=== PATIENT | male | born 1980 | race Caucasian/White ===

== ENCOUNTER 2022-03-07 08:23 | Emergency (ER) | payer OTHER, BC ==
[~2022-03-07] VITALS: Ht 185 cm; Wt 178.0 kg
[2022-03-07] MEDS ORDERED: HYDROcodone/APAP 7.5 MG/325 MG (LORTAB, LORCET PLUS) TABLET PO ONE (09:00)
--- NOTE | 2022-03-07 09:06 | ED Lower Extremity ---
General Chief Complaint: Lower Extremity Stated Complaint: L FOOT PAIN / INJ Nursing Triage Note: PT AMB TO FT1 PT STATES RAN OVER L FOOT W SCISSOR LIFT THIS AM AT WORK IN [place], TRYING TO WORK THIS AM AND NOT ABLE TO WORK Source: patient Exam Limitations: no limitations History of Present Illness Date Seen by Provider: March 07, 2022 Time Seen by Provider: 08:57 Initial Comments Patient is a 41-year-old male who presents to the emergency room with a chief complaint of crush injury to the left foot at about midnight last night. Patient was working on a scissor lift about midnight and the scissor low drove over his left foot. Patient had immediate pain with swelling. He was able to bear weight on his heel. He drove down here from [place] this morning for another job starting shortly here in [place]. He has not taken anything for the pain. He did eat breakfast between 7 and 8 AM this morning. Has had previous injury to this foot. States that his toes are numb. Significant pain to all of his toes except for the fifth toe. Very swollen and ecchymotic at presentation. No other complaints of injury. Onset: other (last night about midnight) Pain/Injury Location: left foot Method of Injury: direct blow Allergies and Home Medications Allergies Coded Allergies: Sulfa (Sulfonamide Antibiotics) (Verified Allergy, Unknown, 03/07/22) Patient Home Medication List Home Medication List Reviewed: Yes Review of Systems Constitutional: see HPI EENTM: no symptoms reported Respiratory: no symptoms reported Cardiovascular: no symptoms reported Gastrointestinal: no symptoms reported Genitourinary: no symptoms reported Musculoskeletal: joint pain (left foot pain and swelling with significant ecchymoses) Skin: change in color (bruising) All Other Systems Reviewed Negative Unless Noted: Yes Past Akrcmuh-Zbnhvg-Jijexs Hx Immunizations Up To Date First/Initial COVID19 Vaccinat: 2020 Second COVID19 Vaccination [place]: 2020 COVID19 Vaccine [employer]: BEAU Physical Exam Vital Signs Vital Signs - First Documented 03/07/22 08:30 Temp 35.8 Pulse 86 Resp 20 B/P (MAP) 162/104 (123) Capillary Refill : Less Than 3 Seconds Height, Weight, BMI Height: '" Weight: lbs. oz. kg; 52.00 BMI Method: General Appearance: WD/WN, no apparent distress Cardiovascular: regular rate, rhythm Respiratory: lungs clear, normal breath sounds, no respiratory distress, no accessory muscle use Hips: bilateral hip non-tender, bilateral hip normal inspection, bilateral hip normal range of motion Legs: bilateral leg non-tender, bilateral leg normal inspection, bilateral leg normal range of motion, bilateral leg no evidence of injury Knees: bilateral knee non-tender, bilateral knee normal inspection, bilateral knee normal range of motion, bilateral knee no evidence of injury Ankles: bilateral ankle non-tender, bilateral ankle normal inspection, bilateral ankle normal range of motion, bilateral ankle no evidence of injury Feet: left foot ecchymosis, left foot limited range of motion, left foot pain, left foot soft tissue tenderness, left foot swelling, left foot other (numbness to toes) Neurologic/Tendon: sensory deficit (to toes) Neurologic/Psychiatric: alert, normal mood/affect, oriented x 3 Skin: warm/dry, ecchymosis Progress/Results/Core Measures Results/Orders My Orders Orders - JORGE DESIR MD Hydrocodone/Apap 7.5/325 Tab (Lortab 7. (03/07/22 09:00) Foot, Left, 3 Views (03/07/22 09:00) Medications Given in ED Current Medications Medications Dose Ordered Sig/Tacho Route Start Time Stop Time Status Last Admin Dose Admin Acetaminophen/ Hydrocodone Bitart 1 ea ONCE ONCE PO 03/07/22 09:00 03/07/22 09:01 DC 03/07/22 09:05 1 EA Vital Signs/I&O 03/07/22 08:30 Temp 35.8 Pulse 86 Resp 20 B/P (MAP) 162/104 (123) Blood Pressure Mean: 123 Diagnostic Imaging Diagonstic Imaging: Xray Comments [facility] [place] NAME: LILY CURRAN [facility] REC#: [id number] PT STATUS: REG ER : 1980 PHYSICIAN: JORGE DESIR MD ADMIT DATE: 03/07/22/ER Signed Date of Exam:03/07/22 FOOT, LEFT, 3 VIEWS CLINICAL HISTORY: Run over with a forklift. COMPARISON: None. TECHNIQUE: Three views of the left foot. FINDINGS: Sclerotic findings are seen at the posterior aspect of the left calcaneus. No displaced fractures are identified in the left foot. Alignment is anatomic. The soft tissues of the left foot demonstrate a small amount of edema along the dorsum of the left foot. IMPRESSION: 1. Sclerotic findings along the posterior aspect of the left calcaneus. Findings may be chronic or represent a stress fracture. Recommend correlation with point tenderness. 2. No acute displaced fractures or evidence of dislocation of the left foot. 3. Small amount of soft tissue edema along the dorsum of the left foot. Dictated by: Dictated on workstation # [id number] Dict: 03/07/22922 Trans: 03/07/22930 [id number] Interpreted by: BABS LEONARD DO Electronically signed by: BABS LEONARD DO 03/07/22930 Departure Impression Primary Impression: Contusion of left foot including toes Qualified Codes: S90.32XA - Contusion of left foot, initial encounter; S90.122A - Contusion of left lesser toe(s) without damage to nail, initial encounter Disposition: 01 HOME, SELF-CARE Condition: Stable Departure-Patient Inst. Decision time for Depature: 09:44 Referrals: NO,LOCAL PHYSICIAN (PCP/Family) Primary Care Physician Patient Instructions: Contusion (DC) Add. Discharge Instructions: Try and keep the left foot elevated above the level of your heart while you are sitting or laying down. Ice packs 20 minutes at a time 4 times a day for the next 3 to 4 days as you are able. [id number]-[id number] extra strength Tylenol 2 tablets every 6 hours and dgcd-plq-ncdsyss Aleve 2 tablets every 12 hours as needed for pain. Wear the walking boot for the next week for comfort. Return to the emergency department for any new, concerning or emergent complaints. JORGE DESIR MD March 07, 2022 09:06
--- NOTE | 2022-03-07 09:27 | Diagnostic Imaging Report ---
CLINICAL HISTORY: Run over with a forklift. COMPARISON: None. TECHNIQUE: Three views of the left foot. FINDINGS: Sclerotic findings are seen at the posterior aspect of the left calcaneus. No displaced fractures are identified in the left foot. Alignment is anatomic. The soft tissues of the left foot demonstrate a small amount of edema along the dorsum of the left foot. IMPRESSION: 1. Sclerotic findings along the posterior aspect of the left calcaneus. Findings may be chronic or represent a stress fracture. Recommend correlation with point tenderness. 2. No acute displaced fractures or evidence of dislocation of the left foot. 3. Small amount of soft tissue edema along the dorsum of the left foot. Dictated by: Dictated on workstation # [id number]
[2022-03-07 09:50] VITALS: BP 162/104
== END 2022-03-07 09:50 | disposition home or self-care (01) ==
LOC: ER 08:25
DX: S90.32XA Contusion of left foot, initial encounter (principal); S90.122A Contusion of left lesser toe(s) without damage to nail, initial encounter; W23.0XXA Caught, crushed, jammed, or pinched between moving objects, initial encounter; Y92.59 Other trade areas as the place of occurrence of the external cause; Y99.0 Civilian activity done for income or pay
CPT/HCPCS: 73630; 99282; L2114